=== PATIENT | male | born 1980 | race Caucasian/White ===

== ENCOUNTER 2019-11-27 10:25 | Emergency (ER) | payer MEDICAID ==
[~2019-11-27] VITALS: Ht 167.6 cm; Wt 74.4 kg
[2019-11-27 10:34] VITALS: Ht 167.6 cm; Wt 74.4 kg
[2019-11-27 11:47] LABS: BASOPHIL % 0.2 % (0-2); PLATELET COUNT 164 x10^3mcL (130-400); RED CELL DISTRIBUTION WIDTH 12.9 % (11.5-14.5)
[2019-11-27 11:57] LABS: CALCIUM 8.8 mg/dL (8.5-10.1); CARBON DIOXIDE 26.7 mmol/L (21-32); CHLORIDE SERUM 103 mmol/L (98-107); CREATININE SERUM 0.8 mg/dL (0.7-1.3); GFR1 > 60 mL/min; GLUCOSE SERUM 105 mg/dL (74-106); POTASSIUM SERUM 3.8 mmol/L (3.5-5.1); SODIUM SERUM 137 mmol/L (136-145)
[2019-11-27 12:03] LABS: ALKALINE PHOSPHATASE 67 U/L (46-116); ALT/SGPT 48 U/L (16-63); AST/SGOT 21 U/L (15-37); BILIRUBIN TOTAL 0.47 mg/dL (0.20-1.00); TOTAL PROTEIN, SERUM 7.4 g/dL (6.4-8.2)
[2019-11-27 15:01] VITALS: BP 132/76
== END 2019-11-27 15:00 | disposition home or self-care (01) ==
LOC: ED 10:25
PROVIDERS: Student in an Organized Health Care Education/Training Program
DX: R00.2 Palpitations (principal); R12 Heartburn; E78.00 Pure hypercholesterolemia, unspecified
CPT/HCPCS: Q0092